=== PATIENT | male | born 1985 | race Caucasian/White ===

== ENCOUNTER 2018-11-21 22:01 | Emergency (ER) | payer OTHER ==
[2018-11-21 22:17] VITALS: BP 136/77; PULSE 65; TEMP 97.9; BMI 31.4
--- NOTE | 2018-11-22 01:59 | PDOC ---
*Physical Exam - Vital Signs Last Vital Signs Temp Pulse Resp BP Pulse Ox 97.9 F 65 20 136/77 98 11/21/18 22:10 11/21/18 22:10 11/21/18 22:10 11/21/18 22:10 11/21/18 22:10 Medical Decision Making - Medical Decision Making 11/22/18 01:58 Patient seen by the advanced practice provider under my direct supervision. Ancillary testing reviewed as necessary. I agree with plan as outlined by the advanced practice provider. *DC/Admit/Observation/Transfer - Discharge Dispostion Condition at time of disposition: Fair - Referrals - Patient Instructions - Post Discharge Activity
== END 2018-11-22 01:50 | disposition left against medical advice (07) ==
LOC: JERFT 22:01 → JER 22:01
DX: Z53.21 Procedure and treatment not carried out due to patient leaving prior to being seen by health care provider (principal)
CPT/HCPCS: 99281-25

== ENCOUNTER 2018-11-27 18:21 | Emergency (ER) | payer OTHER ==
[2018-11-27 18:47] VITALS: BP 110/65; PULSE 68; TEMP 98.4; BMI 32.3
--- NOTE | 2018-11-27 18:47 | PDOC ---
Rapid Medical Evaluation Chief Complaint: Rash Medical Evaluation: I have performed a brief in-person evaluation of this patient. The patient presents with a chief complaint of: Mole to RLE for >5 years; states aunt suggested to have it checked out as someone in family recently from cancer (pancreatic) Pertinent physical exam findings: 1x1 cm circular ?mole along RLE, nontender to touch, no erythema I have ordered the following: Nothing The patient will proceed to the ED for further evaluation. 11/27/18 18:45 Discharge Disposition - Discharge Dispostion Condition at time of disposition: Stable - Referrals - Patient Instructions - Post Discharge Activity
--- NOTE | 2018-11-27 19:27 | PDOC ---
History of Present Illness - General Chief Complaint: Rash Stated Complaint: MOLD ON R LEG Time Seen by Provider: 11/27/18 18:45 History Source: Patient Exam Limitations: No Limitations - History of Present Illness Initial Comments: 11/27/18 19:27 Family members concerned about a mole patient has had for approximately 11 years on his right leg. Due to some recent current news from celebrities with skin cancers family decided patient needed urgent evaluation for this small. Patient denies pain, denies any drainage or bleeding, denies any changes in size. Has completely unchanged for the past 11 years. No history of melanoma or skin cancers. Timing/Duration: reports: just prior to arrival Location: reports: extremities (right) Past History - Travel Traveled outside of the country in the last 30 days: No Close contact w/someone who was outside of country & ill: No - Past Medical History Allergies/Adverse Reactions: Allergies Allergy/AdvReac Type Severity Reaction Status Date / Time No Known Allergies Allergy Verified 11/27/18 18:47 Home Medications: Ambulatory Orders NK [No Known Home Medication] 11/27/18 COPD: No Dementia: No Disorders: No - Surgical History Gastric Stapling: No - Immunization History Immunization Up to Date: No - Suicide/Smoking/Psychosocial Hx Smoking History: Never smoked Have you smoked in the past 12 months: No Information on smoking cessation initiated: No Hx Alcohol Use: No Drug/Substance Use Hx: No *Physical Exam - Vital Signs Last Vital Signs Temp Pulse Resp BP Pulse Ox 98.4 F 68 20 110/65 99 11/27/18 18:45 11/27/18 18:45 11/27/18 18:45 11/27/18 18:45 11/27/18 18:45 - Physical Exam General Appearance: Yes: Nourished, Appropriately Dressed. No: Apparent Distress HEENT: positive: ISABEL, Normal ENT Inspection, TMs Normal, Pharynx Normal Musculoskeletal: positive: Normal Inspection. negative: Decreased Range of Motion Extremity: positive: Normal Capillary Refill, Normal Inspection, Normal Range of Motion, Other (1 cm brown mole on right lateral lower leg. His nontender, no erythema, no different tone or colors, no drainage. 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 NML intact, Fully Oriented, Alert, Normal Mood/ Affect, Normal Response, Motor Strength 5/5 Moderate Sedation - Procedure Monitoring Vital Signs: Procedure Monitoring Vital Signs Temperature 98.4 F 11/27/18 18:45 Pulse Rate 68 11/27/18 18:45 Respiratory Rate 20 11/27/18 18:45 Blood Pressure 110/65 11/27/18 18:45 O2 Sat by Pulse Oximetry (%) 99 11/27/18 18:45 Progress Note - Progress Note Progress Note: 9 mole, will refer to dermatology for removal *DC/Admit/Observation/Transfer Diagnosis at time of Disposition: Benign mole - Discharge Dispostion Disposition: HOME Condition at time of disposition: Stable Decision to Admit order: No - Referrals Referrals: Lottie Gillespie MD [Staff Physician] - - Patient Instructions Printed Discharge Instructions: Moles Additional Instructions: No treatment is required for this benign Dermatology consult for removal - Post Discharge Activity
== END 2018-11-27 19:34 | disposition home or self-care (01) ==
LOC: JERFT 18:21
DX: D22.9 Melanocytic nevi, unspecified (principal)
CPT/HCPCS: 99281-25